=== PATIENT | male | born 1985 | race Caucasian/White ===

== ENCOUNTER 2016-10-16 10:21 | Inpatient (IN) | payer BC, OTHER ==
[~2016-10-16] VITALS: Ht 177.8 cm; Wt 108.9 kg
[2016-10-16 12:30] VITALS: BP 128/51
[2016-10-16] MEDS ORDERED: SULF1TAB48 PO (12:41)
[2016-10-16] MEDS ORDERED: CEPH500C2 PO (12:42)
[2016-10-16] MEDS ORDERED: WARF7.5T23 PO (12:43)
[2016-10-16] MEDS ORDERED: WARF5TAB6 PO (12:44)
[2016-10-16] MEDS ORDERED: BUPRENORPHINE HCL 2 MG TAB.SUBL SL PRN (12:45)
[2016-10-16] MEDS ORDERED: IBUPROFEN 600 MG TABLET PO PRN (12:45)
[2016-10-16] MEDS ORDERED: LORAZEPAM 2 MG/1 ML VIAL IM PRN (12:45)
[2016-10-16] MEDS ORDERED: MAG HYDROX/AL HYDROX/SIMETH 30 ML LIQUID UDC PO PRN (12:45)
[2016-10-16] MEDS ORDERED: LORAZEPAM 1 MG TABLET PO PRN ×2 (12:45)
[2016-10-16] MEDS ORDERED: MIRALAX 17 GM POWD.PACK PO PRN (12:45)
[2016-10-16] MEDS ORDERED: LOPERAMIDE HCL 2 MG CAPSULE PO PRN ×2 (12:45)
[2016-10-16] MEDS ORDERED: ONDANSETRON 4 MG/2 ML VIAL IM PRN (12:45)
[2016-10-16] MEDS ORDERED: diphenhydrAMINE 50 MG CAPSULE PO PRN (12:45)
[2016-10-16] MEDS ORDERED: MAGNESIUM HYDROXIDE 30 ML LIQUID UDC PO PRN (12:45)
[2016-10-16] MEDS ORDERED: ACETAMINOPHEN 325 MG TABLET PO PRN (12:45)
[2016-10-16] MEDS ORDERED: THIAMINE HCL 200 MG/2 ML VIAL IM ONE (12:45)
[2016-10-16] MEDS: BUPRENORPHINE HCL 2 MG TAB.SUBL SL SCH ×3 (13:41→21:37)
[2016-10-16] MEDS: CEPHALEXIN MONOHYDRATE 500 MG CAPSULE PO SCH ×3 (13:41→21:37)
--- NOTE | 2016-10-16 13:55 | NUR ---
ADMISSION NOTE VS: BP: 128/51 HR: 77 O2: 94% RR: 17 TEMP: 98.4 PAIN 010 HEIGHT: 5'10" WEIGHT: 240 LBS ALLERGIES: LITTLE Yu is a 31 y/o male admitted to [facility] on 10/16/16 at 1210. Pt is under the care of Dr. Ramos for heroin and etoh dependence. Pt denies suicidal and homicidal ideations at this time. Pt denies chest pain and SOB at this time. Upon assessment, patient has multiple lesions all over back, bilat arms, and chest. Pt states these lesions are from MRSA as he has been hospitalized recently. MRSA swab of nares was sent to lab. Pt placed on contact precautions. COWS 8 CIWA 6 upon admission. NKA. AOx4 and able to answer questions necessary for admission. Pt is full code. VS WNL. Regular diet. Pt denies seizure hx. Pt denies PCP. Breathing is even and unlabored. O2 is 94% on room air. Pt ambulates with steady gait. Pt states bowel habits are normal and he goes at least once per day normally. Pt reports a hx of 10 sober livings and 4 detoxs in the past. Pt reports he is currently living in hotel rooms because he just lost his job. Hx of anxiety and bipolar disorder. Pt refuses pna vaccine. Pt smokes about 10 cigarettes a day. All needs have been met. Pt has been oriented to room, staff, and the unit. All safety measures are in place per hospital policy. Bed in lowest position, side rails up x2, call light within reach. Will continue to monitor. Substance abuse: Heroin IV 1-2 g daily for 2 weeks, last used 10/15/16 2 grams ETOH PO "5th" daily for 2 weeks, last used 10/16/16 1 pint rum and 6 pack of beer. Addendum: 10/16/16 at 1419 by MALIKA BRAMBILA RN Upon reassessment, pt states he has had seizures in the past. Last seizure was about 1.5 years ago. Side rails padded.
[2016-10-16 14:04] LABS: BASOPHILS % (AUTO) 0.6 % (0.0-2.0); EOSINOPHILS # (AUTO) 0.3 K/uL (0.0-0.7); EOSINOPHILS % (AUTO) 4.2 % (0.0-7.0); HEMOGLOBIN 17.5 g/dL (14.0-18.0); LYMPHOCYTES # (AUTO) 1.5 K/uL (0.8-4.8); LYMPHOCYTES % (AUTO) 23.7 % (20.5-51.5); MEAN CORPUSCULAR HEMOGLOBIN 29.5 uug (27.0-31.0); MEAN CORPUSCULAR HGB CONC 34 g/dL (32.0-37.0); MEAN CORPUSCULAR VOLUME 85.6 fL (82.0-92.0); MONOCYTES # (AUTO) 0.4 K/uL (0.1-1.30); MONOCYTES % (AUTO) 6.2 % (0.0-11.0); NEUTROPHILS # (AUTO) 4.1 K/uL (1.8-8.9); NEUTROPHILS % (AUTO) 65.3 % (38.5-71.5); PLATELET COUNT (AUTO) 254 K/uL (150-450); RED BLOOD CELL COUNT(AUTO) 5.95 MIL/uL (4.70-6.10); RED CELL DISTRIBUTION WIDTH 12.2 % (11.5-14.5); WHITE BLOOD COUNT (AUTO) 6.3 K/uL (4.0-11.2)
[2016-10-16 14:10] LABS: ALBUMIN 3.8 g/dL (3.4-5.0); BILIRUBIN,TOTAL 0.9 mg/dL (0.2-1.0); CALCIUM 8.5 mg/dL (8.5-10.1); CREATININE 1.2 mg/dL (0.6-1.3); MAGNESIUM 2.2 mg/dL (1.8-2.4); POTASSIUM 4.5 mmol/L (3.5-5.1); TOTAL PROTEIN, SERUM 7.9 g/dL (6.4-8.2)
[2016-10-16 14:11] LABS: *AMPHETAMINE, URINE NEGATIVE (NEGATIVE); *BARBITURATE, URINE NEGATIVE (NEGATIVE); *CANNABINOID, URINE NEGATIVE (NEGATIVE); *COCCAINE, URINE NEGATIVE (NEGATIVE); *OPIATE, URINE POSITIVE (NEGATIVE); *PHENCYCLIDINE SCREEN,URINE NEGATIVE (NEGATIVE)
[2016-10-16] MEDS: GABAPENTIN 300 MG CAPSULE PO SCH ×2 (14:18→21:37)
--- NOTE | 2016-10-16 14:19 | NUR ---
Pt refusing side rails to be padded. Educated pt on risks of not padding side rails. Will monitor.
[2016-10-16 14:21] LABS: THYROID STIMULATING HORMONE 0.459 mIU/mL (0.358-3.740)
--- NOTE | 2016-10-16 14:24 | NUR ---
notified Dr. Ramos notified. Pt ETOH level 0.08. No new orders.
[2016-10-16 14:28] LABS: BAND % (MANUAL) 11 % (0-10); EOSINOPHILS % (MANUAL) 4 % (0-8); LYMPHOCYTES % (MANUAL) 27 % (20-40); MONOCYTES % (MANUAL) 4 % (2-10); NEUTROPHILS % (MANUAL) 54 % (42-75)
[2016-10-16 14:29] LABS: PLATELET ESTIMATE ADEQUATE
[2016-10-16 14:33] LABS: HIV-1 p24 ANTIGEN NON REACTIVE (NONREACTIVE); HIV-1/2 ANTIBODY NON REACTIVE (NONREACTIVE)
[2016-10-16 16:00] VITALS: BP 121/70
--- NOTE | 2016-10-16 16:03 | NUR ---
Notified Dr. Ramos regarding elevated PT and INR levels. Ordered to hold 1700 Coumadin. Notified pharmacy. Will non-administer per doctor order.
--- NOTE | 2016-10-16 16:35 | NUR ---
PRN MED PRN Zofran 4 mg ODT given for c/o nausea. Will monitor for effectiveness.
[2016-10-16] MEDS ORDERED: WARFARIN SODIUM 5 MG TABLET PO ONE (17:00)
--- NOTE | 2016-10-16 17:22 | NUR ---
PRN EFFECTIVENESS Patient states Zofran was helpful and he is no longer nauseated.
--- NOTE | 2016-10-16 18:47 | NUR ---
END OF SHIFT: Admitted patient this shift. Pt admitted for IV heroin and ETOH dependence. Pt reports using 1-2 grams of heroin and about a 5th of ETOH everyday for about 2 weeks. Pt has a history of protein S deficiency and Hepatitis C. Pt on contact precautions for MRSA outbreak. Nares swabbed for MRSA and sent to lab. Pt has lesions on back, bilat arms, and chest from MRSA per patient. Patient is also on fall and seizure precautions although pt refused to have his side rails padded. Patient is to start a 5 day Ativan taper on 10/17/16 at 0900. Last COWS 6 CIWA 4. PRN Zofran given this shift with effectiveness. VS stable. Bed locked and in lowest position with call gupta in reach. Will pass report to oncoming nurse
[2016-10-16 20:00] VITALS: BP 136/80
--- NOTE | 2016-10-16 20:00 | NUR ---
2000 Patient received resting comfortably with eyes closed and respirations unlabored at 18. Patient easily aroused for nurse assess and vital signs. Patient responds to nurse's greeting and introduction with delayed, " Hi" and shoulder shrugs. Eye contact transient. Patient is oriented to person, place, day and his personal situation. Reoriented to date and time. Patient's color is pink and his skin is warm, very slightly moist and intact. Patient is on Contact precautions for body, skin MRSA, noted on his back, arms and chest. Patient states that he was recently hospitalized at [facility] his current MRSA diagnosis. Patient's lung sounds are clear bilaterally and active bowel sounds are noted X 4 abdominal Quads, per auscultation. Vital signs are: 98.6-90-18 136/80, O2 Sat 98%, COWS 5, CIWA 4. Fall/Seizure precautions continue. Patient states that he ate a little food from his regular dinner tray and he is taking fluids ad malathi with no gastric issues at this time. Patient offers no requests or c/o anything at this time, and he denies any specific discomfort. [facility]. Patient was admitted today, 10/16/16 for: heroin and alcohol withdrawal and he will start on a 5-Day Ativan medication taper tomorrow, 10/17/16. Bed is locked and in lowest position, bed rails are up X 2 and call light within patient's easy reach.
[2016-10-16] MEDS: SULFAMETH/TRIMETH 800/160 MG TABLET PO SCH (21:37)
[2016-10-16] MEDS: CLONIDINE HCL 0.1 MG TABLET PO PRN (23:42)
[2016-10-16] MEDS: ONDANSETRON ODT 4 MG TAB.RAPDIS SL PRN (23:42)
--- NOTE | 2016-10-16 23:42 | NUR ---
PRN MEDICATIONS: Prn Zofran 4 mg Odt SL given per patient's c/o nausea and Prn Catapres 0.1 mg given per patient's c/o 'withdrawal symptoms'; anxiety, restless leg, agitation, skin temp flashes.
[2016-10-17] VITALS: BP 129/76
--- NOTE | 2016-10-17 00:42 | NUR ---
REASSESSMENT PRN MEDICATIONS: Patient is resting quietly with eyes closed and respirations even, unlabored at 16.
[2016-10-17 04:00] VITALS: BP 128/83
--- NOTE | 2016-10-17 06:30 | NUR ---
0630 Patient slept a total of 5 hours and he had a total of 2,370 ml p.o. intake. He had 4 voids and 4 stools at bathroom. Prn medications given noted separately per floor protocol. V/SS afebrile, CIWA 4, COWS 5. Patient is presently resting comfortably in stable condition with eyes closed and respirations quiet, unlabored at 14.
--- NOTE | 2016-10-17 07:29 | NUR ---
START OF SHIFT Received pt this am aox4. Patient in his room and states he is feeling w/d s/s of anxiousness, agitated, sweats, shakes, and disoriented. Pt states he had restless sleep last night and kept waking up. He slept 5 hours per night nurse. PRN Catapres and Zofran given during shift nurse manager and it was effective per night nurse. Last COWS 5 CIWA 4. Pt remains on isolation precautions for MRSA outbreak. Pt is aware of limitations regarding his isolation precautions. TB test is to be complete today. 5 day Ativan taper is to start at 0900 today. Will encourage increase in fluids to facilitate his detox. Call gupta in reach. Will continue to monitor pt and provide safe and supportive environment.
[2016-10-17 08:00] VITALS: BP 103/70
[2016-10-17] MEDS ORDERED: TUBERCULIN,PURIF.PROT.DERIV. 5 TU/0.1 ML TEST ID ONE (09:00)
[2016-10-17] MEDS ORDERED: 5 DAY TAPER OF LORAZEPAM -SERENITY PROTOCOL PO PRN (09:00)
[2016-10-17 09:07] LABS: HCV AB >11.0 s/co ratio (0.0-0.9); HEPATITIS B CORE AB, IgM Negative (Negative); HEPATITIS B SURFACE AG Negative (Negative)
[2016-10-17] MEDS: BUPRENORPHINE HCL 2 MG TAB.SUBL SL SCH ×3 (09:11→20:57)
[2016-10-17] MEDS: THIAMINE HCL 100 MG TABLET PO SCH (09:12)
[2016-10-17] MEDS: SULFAMETH/TRIMETH 800/160 MG TABLET PO SCH (09:12)
[2016-10-17] MEDS: FOLIC ACID 1 MG TABLET PO SCH (09:12)
[2016-10-17] MEDS: MULTIVITAMINS,THERAPEUTIC TABLET PO SCH (09:12)
[2016-10-17] MEDS: DOCUSATE SODIUM 250 MG CAPSULE PO SCH (09:12)
[2016-10-17] MEDS: CEPHALEXIN MONOHYDRATE 500 MG CAPSULE PO SCH ×4 (09:12→20:58)
[2016-10-17] MEDS: LORAZEPAM 1 MG TABLET PO SCH ×4 (09:12→20:58)
[2016-10-17] MEDS: GABAPENTIN 300 MG CAPSULE PO SCH ×3 (09:12→20:58)
--- NOTE | 2016-10-17 11:55 | NUR ---
Notified Dr. Ramos of PT and INR values. Ordered to resume Coumadin 5 mg.
[2016-10-17 12:00] VITALS: BP 149/62
[2016-10-17] MEDS: ONDANSETRON ODT 4 MG TAB.RAPDIS SL PRN (12:57)
--- NOTE | 2016-10-17 12:57 | NUR ---
PRN MED PRN Zofran ODT given for c/o nausea. Pt states he couldn't eat his lunch he felt so nauseated. Will reassess.
[2016-10-17] MEDS ORDERED: LORAZEPAM 1 MG TABLET PO SCH (13:00)
--- NOTE | 2016-10-17 13:50 | NUR ---
MED REASSESSMENT Pt is in bed resting. Reports nausea has gotten better. Bed locked and in lowest position. Call gupta in reach. Will continue to monitor
[2016-10-17] MEDS ORDERED: TEST200V4 IM (15:27)
[2016-10-17 16:00] VITALS: BP 129/65
--- NOTE | 2016-10-17 16:17 | NUR ---
MRSA negative. Dr. Ramos notified. DC contact precautions per Dr. Ramos.
[2016-10-17] MEDS: COUMADIN VARIABLE DOSE REMINDE XX SCH (16:49)
[2016-10-17] MEDS ORDERED: WARFARIN SODIUM 5 MG TABLET PO ONE (17:00)
--- NOTE | 2016-10-17 18:49 | NUR ---
START OF SHIFT NOTE Patient endorsed by outgoing day shift nurse. SBAR report received. Patient is a32 years old male admitted to [facility] for ETOH and Opioid Dependence, placed on 5 day Ativan taper started 10/17/2016 at 09:00. NKA, Regular Diet, Full Code, Fall and Seizures Precautions. Patient denied History of Seizures. Patient denied SI/HI.Past Medical History: Protein S def.; Hepatitis C; Substance Use. Substance Use History: Heroin via IV: 1-2 grams during 2 weeks. Last amount 2 grams on 10/15/16. ETOH (Rum, Beer): 5 th during 2 weeks. Last dose of 1 pint Rum and 6 packs beer on 10/16/16. Recent Hospitalizations/Treatment: 10 Sober Livings; 4 Detox; Hospitalized at [facility] for MRSA less than 30 days. Patient cant reminder dates of Treatments. MRSA tests negative. Upon assessment patient is alert and oriented x4; speech is soft. COWS 6; CIWA 3. HR:85; patient reports increase anxiety; c/o chills/flushing; sweating, c/o mild diffuse discomfort; c/o stomach cramps. VS: T:98.1; HR: 85; BP: 121/60; RA O2SAT: 95%; RR: 19. Breathing is unlabored and even. Lungs Sounds are clear. BS is active in all x 4 quadrants. Last BMs today in the morning. Skin is intact, warm and moist by touch. Patient was educated for safety issues: keep bed in lowest position and locked, rails up x2. Patient returned his Knowledge back by verbalized understanding. All Safety met by hospital policy: Call Light within reach; Bed in lowest position and locked, rails up x2. Will continue to monitor.
--- NOTE | 2016-10-17 18:49 | NUR ---
END OF SHIFT NOTE Pt started Ativan taper this am. Pt tolerating medication well and pt reports it is helping to manage s/s of w/d. Last COWS 3 CIWA 2. Pt reports loose stools and intermittent sweats. His anxiety has significantly decreased throughout shift. Pt given PRN Zofran ODT during shift with effectiveness per pt. MRSA results were negative and contact precautions were discontinued per Dr. Ramos order. Pt given [address] Ramos order for INR 2.24 and PT 23.1.Pt attended group today and socialized with peers. TB test was administered today and is to be ready 10/19. No signs of redness noted. Pt continues on fall and seizure precautions. Pt currently resting in room with bed locked and in lowest position and call gupta within reach. RR even and unlabored. All needs attended to promptly. All safety measures in place. Will pass report to oncoming nurse
[2016-10-17 20:00] VITALS: BP 121/60
[2016-10-17] MEDS: LACTOBACILLUS RHAMNOSUS GG 1 EACH CAPSULE PO SCH (20:58)
[2016-10-18] VITALS: BP 114/57
--- NOTE | 2016-10-18 00:50 | NUR ---
PRN BENADRYL/ROBAXIN ADMINISTRATION PATIENT UNABLE TO SLEEP, NOTED RESTLESS, UNABLE TO SIT STILL AND C/O RESTLESS LEGS. PRN BENADRYL AND ROBAXIN GIVEN. WILL MONITOR FOR EFFECTIVENESS
[2016-10-18 04:00] VITALS: BP 102/54
--- NOTE | 2016-10-18 07:02 | NUR ---
END OF SHIFT NOTE Patient is a32 years old male admitted to [facility] for ETOH and Opioid Dependence, placed on 5 day Ativan taper started 10/17/2016 at 09:00. NKA, Regular Diet, Full Code, Fall and Seizures Precautions. Patient denied History of Seizures. Patient denied SI/HI. Upon assessment at 04:00: COWS 4; CIWA 2. patient presented with anxiety ; restlessness, sweating, bone and Joint aches, stomach cramps. VS at 04:00: T:98.2; HR: 84; BP: 102/54; RA O2SAT: 95%; RR: 17. Breathing is unlabored and even. Lungs Sounds are clear. BS is active in all x 4 quadrants. Last BMs today in the morning. Skin is intact, warm and moist by touch. Patient participated in activities groups. Patient remains compliant with treatment plan, medications and diet regime. No PRN Medications was administrated during my shift. Patient slept 9 hours; Intake: 651ml; Voided x1. All Safety met by hospital policy: Call Light within reach; Bed in lowest position and locked, rails up x2. Patient endorsed to day shift nurse in stable condition.. SBAR report given.
--- NOTE | 2016-10-18 07:55 | NUR ---
START OF SHIFT Received pt this am aox4. Patient in his room and states he is feeling restless, intermittent cold sweats, stuffy nose, and light headed.. Pt states he had restless sleep again last night and kept waking up. He slept 9 hours per night nurse. No PRNs needed last shift per night nurse.. Last COWS 4 CIWA 2 per night nurse. Pt continues on 5 day Ativan taper.. Will encourage increase in fluids to facilitate his detox. Will encourage group attendance again today. Call gupta in reach. Will continue to monitor pt and provide safe and supportive environment.
[2016-10-18 08:00] VITALS: BP 135/62
[2016-10-18] MEDS: FOLIC ACID 1 MG TABLET PO SCH (08:42)
[2016-10-18] MEDS: THIAMINE HCL 100 MG TABLET PO SCH (08:42)
[2016-10-18] MEDS: CEPHALEXIN MONOHYDRATE 500 MG CAPSULE PO SCH ×4 (08:42→21:04)
[2016-10-18] MEDS: MULTIVITAMINS,THERAPEUTIC TABLET PO SCH (08:42)
[2016-10-18] MEDS: LORAZEPAM 1 MG TABLET PO SCH ×3 (08:42→21:04)
[2016-10-18] MEDS: LACTOBACILLUS RHAMNOSUS GG 1 EACH CAPSULE PO SCH ×2 (08:42→21:04)
[2016-10-18] MEDS: GABAPENTIN 300 MG CAPSULE PO SCH ×3 (08:42→21:04)
[2016-10-18] MEDS: DOCUSATE SODIUM 250 MG CAPSULE PO SCH (08:42)
[2016-10-18] MEDS ORDERED: BUPRENORPHINE HCL 2 MG TAB.SUBL SL SCH (09:00)
[2016-10-18] MEDS ORDERED: LORAZEPAM 1 MG TABLET PO SCH (09:00)
[2016-10-18 12:00] VITALS: BP 101/71
--- NOTE | 2016-10-18 12:44 | NUR ---
Wounds reassessed, pictures taken and placed in pt chart.
--- NOTE | 2016-10-18 13:03 | NUR ---
Notified Dr. Ramos of PT 20.8 and INR 2.02 and ordered to give 5 mg Coumadin. Addendum: 10/18/16 at 1458 by MALIKA BRAMBILA RN at 1700
[2016-10-18] MEDS: BUPRENORPHINE HCL 2 MG TAB.SUBL SL SCH ×2 (14:30→21:06)
[2016-10-18 16:00] VITALS: BP 128/52
[2016-10-18] MEDS: COUMADIN VARIABLE DOSE REMINDE XX SCH (16:44)
[2016-10-18] MEDS: DICYCLOMINE HCL 20 MG TABLET PO PRN ×2 (16:48→23:10)
[2016-10-18] MEDS: METHOCARBAMOL 750 MG TABLET PO PRN (16:48)
--- NOTE | 2016-10-18 16:51 | NUR ---
PRN MEDICATION PRN Bentyl and Robaxin given for c/o body aches and stomach cramps. Pt presents agitated and restless r/t aching. Will reassess
[2016-10-18] MEDS ORDERED: WARFARIN SODIUM 5 MG TABLET PO ONE (17:00)
--- NOTE | 2016-10-18 17:30 | NUR ---
PRN REASSESSMENT Patient laying in bed sleeping rr even and unlabored. RR 16. Bed locked and in lowest position. Call gupta within reach. Will continue to monitor.
--- NOTE | 2016-10-18 18:58 | NUR ---
END OF SHIFT NOTE Pt continues on Subutex taper. Pt tolerating medication well and pt reports it is helping to manage s/s of w/d. Last COWS 3 CIWA 2. Pt reports restlessness, anxiety, body aches and stomach cramps. Pt given PRN Bentyl and Robaxin with effectiveness. Pt given [address] Ramos order for INR 2.02 and PT 20.8 .Pt attended group today and socialized with peers. Pt continues on fall and seizure precautions. Pt currently resting in room with bed locked and in lowest position and call gupta within reach. RR even and unlabored. All needs attended to promptly. All safety measures in place. Will pass report to oncoming nurse
[2016-10-18 20:00] VITALS: BP 129/65
--- NOTE | 2016-10-18 20:00 | NUR ---
START OF SHIFT NOTE PATIENT IN ROOM, RESTING , ALERT AND ORIENTED X 4. PATIENT REPORTS ANXIETY, STUFFY NOSE, HOT AND COLD SWEATS. NAUSEA NO EMESIS, IRRITABLE AND MILDLY AGITATED. RELAXATION TECHNIQUE PROVIDED. PATIENT STATES HE ATTENDED GROUPS . HAD BM TODAY, WITH GOOD APPETITE AND DRINKING WELL. RECEIVED REPORT FROM DAY SHIFT NURSE. PATIENT IS A 31 YEAR OLD MALE, ADMITTED FOR SUBSTANCE DEPENDENCE. PATIENT IS ON 2ND DAY OF HIS 5 DAY ATIVAN TAPER AND 4 DAY SUBUTEX TAPER. PATIENT IS FULL CODE, REGULAR DIET AND NO KNOWN ALLERGY. PATIENT WITH MULTIPLE LESION ON BACK, BILATERAL ARMS AND CHEST. ON ANTIBIOTIC WITH NO ADVERSE EFFECT . PATIENT REPORTS PMH OF PROTEIN S DEF AND HEPATITIS C. ON FALL/SEIZURE PRECAUTION. PATIENT WAS GIVEN BENTYL AND ROBAXIN. LAST COWS 6 AND CIWA 4. SAFETY MEASURES IN PLACE. CALL LIGHT IN REACH. WILL CONTINUE TO MONITOR.
[2016-10-18] MEDS: ONDANSETRON ODT 4 MG TAB.RAPDIS SL PRN (21:06)
--- NOTE | 2016-10-18 21:06 | NUR ---
PRN ZOFRAN SL ADMINISTRATION PATIENT C/O NAUSEA NO EMESIS. PRN ZOFRAN GIVEN. WILL MONITOR FOR EFFECTIVENESS
--- NOTE | 2016-10-18 21:36 | NUR ---
PRN ZOFRAN SL RE-ASSESSMENT PATIENT STATES NAUSEA CEASED. ZOFRAN EFFECTIVE. WILL CONTINUE TO MONITOR
[2016-10-18] MEDS: CLONIDINE HCL 0.1 MG TABLET PO PRN (23:10)
--- NOTE | 2016-10-18 23:10 | NUR ---
PRN BENADRYL, CATAPRES , ZOFRAN IM ADMINISTRATION PATIENT C/O ANXIETY, SWEATING, NAUSEATED WITH EMESIS . PRN CATAPRES , BENADRYL AND ZOFRAN IM GIVEN PER DR. CHAN. WILL CONTINUE TO MONITOR EFFECTIVENESS Addendum: 10/19/16 at 0433 by WESLEY LEMONS LVN CLARIFICATION: BENTYL GIVEN. PATIENT C/O ABDOMINAL CRAMPING.
[2016-10-19] VITALS: BP 113/59
--- NOTE | 2016-10-19 00:10 | NUR ---
FIORELLA MATTHEW RE-ASSESSMENT PATIENT STATES STILL UNABLE TO SLEEP, STILL ANXIOUS. PATIENT STATES HE WILL GO SMOKE AND WILL TRY TO SLEEP. WILL CONTINUE TO MONITOR . MOISE AND CATAPRES INEFFECTIVE. Addendum: 10/19/16 at 0602 by WESLEY LEMONS LVN CLARIFICATION: ANTOINE RE-ASSESSMENT PATIENT STATES ABDOMINAL CRAMPING IS STILL PRESENT . ANTOINE HELPFUL HE FEELS MUCH BETTER
[2016-10-19] MEDS: METHOCARBAMOL 750 MG TABLET PO PRN (00:50)
--- NOTE | 2016-10-19 00:50 | NUR ---
PRN BENADRYL/ROBAXIN ADMINISTRATION PATIENT NOTED UNABLE TO SLEEP AND C/O RESTLESS LEGS. PRN BENADRYL AND ROBAXIN GIVEN. WILL MONITOR FOR EFFECTIVENESS.
--- NOTE | 2016-10-19 01:50 | NUR ---
TIFFANIEN MOISE /ROBAXIN RE-ASSESSMENT PATIENT IN BED WITH EYES CLOSED. NO S/S OF DISTRESS. RESPIRATION EVEN AND UNLABORED. SAFETY MEASURES IN PLACE. CALL LIGHT IN REACH. WILL CONTINUE TO MONITOR.
[2016-10-19] MEDS ORDERED: BUPRENORPHINE HCL 2 MG TAB.SUBL SL ONE (02:30)
[2016-10-19] MEDS ORDERED: LORAZEPAM 1 MG TABLET PO ONE (02:30)
--- NOTE | 2016-10-19 02:30 | NUR ---
ONE TIME ATIVAN AND SUBUTEX ADMINISTRATION PATIENT NOTED ANXIOUS, IRRITATED, AGITATED, UNABLE TO SIT STILL, C/O SWEATING, HOT AND COLD CHILLS . NON PHARMACOLOGICAL INTERVENTIONS INEFFECTIVE. CIWA 8 AND COWS 8. PRN ATIVAN AND SUBUTEX GIVEN PER DR. CHAN ORDER. WILL CONTINUE TO MONITOR FOR EFFECTIVENESS
--- NOTE | 2016-10-19 03:00 | NUR ---
PRN SUBUTEX RE-ASSESSMENT PATIENT IN BED, WITH HIS EYES CLOSED. COWS 2 AT THIS TIME. PATIENT JUST NOD WHEN ASKED HOW HE IS. WILL CONTINUE TO MONITOR.
--- NOTE | 2016-10-19 03:30 | NUR ---
PRN ATIVAN RE-ASSESSMENT PATIENT IN BED WITH EYES CLOSED . NO S/S OF DISTRESS. PATIENT JUST NOD WHEN ASKED HOW HE IS THEN GOES BACK TO SLEEP. WILL CONTINUE TO MONITOR. . CIWA 1.
[2016-10-19 04:00] VITALS: BP 122/71
--- NOTE | 2016-10-19 07:05 | NUR ---
Start of Shift Endorsement received from nightshift nurse. Pt is a 31 y/o male admitted to [facility] for heroin and alcohol dependence. Pt has been placed on a 5 day Ativan and 4 day Subutex taper. Pt is tolerating the taper, pt is mildly withdrawing at this time AEB COWS 1, CIWA 1 at 0400. Pt received prn Zofran x2, Bentyl, Clonidine, Robaxin and Benadryl during nightshift. PT slept 5 hours. Pt also received One time dose of Subutex and Ativan per Dr. Falcon. VS WNL, Full Code. PT is alert and oriented x4. Pt is in STABLE condition at this time. Remains compliant with medication and diet regimen. All needs have been met, All safety measures in place per hospital policy. Bed in lowest position, side rails up x2, call-light within reach. Will continue to monitor
--- NOTE | 2016-10-19 07:32 | NUR ---
END OF SHIFT NOTE PATIENT C/O MEDICATION AND TREATMENT PLAN. PATIENT WAS NAUSEATED THE BEGINNING OF SHIFT, C/O SWEATING, STUFFY NOSE, HOT AND COL SWEATS , IRRITABLE AND MILDLY AGITATED. PRN ZOFRAN SL GIVEN AT 2106. THEN AT 2310 PATIENT WAS GIVEN BENTYL , CATAPRES AND ZOFRAN IM. PATIENT NAUSEATED WITH EMESIS. AT 0050, PATIENT UNABLE TO SLEEP, ANXIOUS, EFFECTIVE. PATIENT WAS AGITATED , IRRITABLE , PATIENT REPORTS NOT FEELING WELL, REPORTS SWEATING, ANXIOUS, AGITATED, COWS [address] CHAN NOTIFIED AND MADE AND ORDER TO GIVEN ONE TIME SUBUTEX AND ATIVAN . EFFECTIVE. CONTINUE ON ANTIBIOTIC WITH NO ADVERSE EFFECT NOTED. FLUIDS ENCOURAGED. PATIENT SLEPT 5 HOURS DURING SHIFT,FLUID INTAKE OF 596 ML. VOIDED X 1 . NO BM. ON FALL PRECAUTION. WILL CONTINUE TO MONITOR. LAST COWS 1 AND CIWA 1.
[2016-10-19 08:00] VITALS: BP 138/75
[2016-10-19] MEDS: BUPRENORPHINE HCL 2 MG TAB.SUBL SL SCH ×3 (08:44→20:57)
[2016-10-19] MEDS: CEPHALEXIN MONOHYDRATE 500 MG CAPSULE PO SCH ×3 (08:44→16:02)
[2016-10-19] MEDS: FOLIC ACID 1 MG TABLET PO SCH (08:45)
[2016-10-19] MEDS: LORAZEPAM 1 MG TABLET PO SCH ×4 (08:45→20:57)
[2016-10-19] MEDS: LACTOBACILLUS RHAMNOSUS GG 1 EACH CAPSULE PO SCH ×2 (08:45→20:56)
[2016-10-19] MEDS: GABAPENTIN 300 MG CAPSULE PO SCH ×3 (08:45→20:56)
[2016-10-19] MEDS: MULTIVITAMINS,THERAPEUTIC TABLET PO SCH (08:45)
[2016-10-19] MEDS: DOCUSATE SODIUM 250 MG CAPSULE PO SCH (08:45)
[2016-10-19] MEDS: THIAMINE HCL 100 MG TABLET PO SCH (08:45)
[2016-10-19] MEDS ORDERED: LORAZEPAM 1 MG TABLET PO SCH (09:00)
[2016-10-19 12:00] VITALS: BP 130/60
[2016-10-19] MEDS: CLONIDINE HCL 0.1 MG TABLET PO SCH ×2 (15:58→20:57)
[2016-10-19 16:00] VITALS: BP 110/62
[2016-10-19] MEDS ORDERED: WARFARIN SODIUM 5 MG TABLET PO SCH (17:00)
--- NOTE | 2016-10-19 18:51 | NUR ---
End of Shift Endorsement given to nightshift nurse. Pt is a 31 y/o male admitted to [facility] for heroin and alcohol dependence. Pt has been placed on a 5 day Ativan and 4 day Subutex taper. Pt is tolerating the taper, pt is mildly withdrawing at this time AEB COWS 5, CIWA 4 at 0400. Pt received did not receive any PRN medications. Educated pt on deep breathing techniques, pt demonstrated the exercise successfully. Pt participated in groups and activities. Pt reports readiness for sobriety. Intake: 1290ml, Void x3, BM x0. VS WNL, Full Code. PT is alert and oriented x4. Pt is in STABLE condition at this time. Remains compliant with medication and diet regimen. All needs have been met, All safety measures in place per hospital policy. Bed in lowest position, side rails up x2, call-light within reach. Will continue to monitor
[2016-10-19 20:00] VITALS: BP 128/71
--- NOTE | 2016-10-19 20:00 | NUR ---
START OF SHIFT NOTE PATIENT ALERT AND ORIENTED X 4. RESPIRATION EVEN AND UNLABORED. PATIENT REPORTS ANXIETY, SWEATING AND ABDOMINAL CRAMPING. PATIENT STATES HE FEELS MUCH BUT BETTER THAN YESTERDAY. PATIENT ATTENDED GROUPS BUT NOT THE AA. PATIENT WITH GOOD APPETITE AND DRINKING FLUIDS WELL. PATIENT IS A 31 YEAR OLD MALE, ADMITTED FOR SUBSTANCE DEPENDENCE. PATIENT IS ON 3RD DAY OF HIS 5 DAY ATIVAN AND 4 DAY SUBUTEX TAPER. PATIENT IS FULL CODE, REGULAR DIET AND NO KNOWN ALLERGY. PATIENT REPORTS PMH OF PROTEIN S DIF WHICH HE IS TAKING COUMADIN AND HEPATITIS C. RECEIVED REPORT FROM DAY SHIFT NURSE, PATIENT DID NOT REQUIRE ANY PRN MEDICATION. LAST COWS [address] SINGLETON HAS AN ORDER FOR TESTOSTERONE LEVEL FOR TOMORROW. ON FALL PRECAUTION. SAFETY MEASURES IN PLACE. CALL LIGHT IN REACH. WILL CONTINUE TO MONITOR
[2016-10-19] MEDS: ONDANSETRON ODT 4 MG TAB.RAPDIS SL PRN (21:01)
--- NOTE | 2016-10-19 21:01 | NUR ---
PRN ZOFRAN SL ADMINISTRATION PATIENT C/O NAUSEA, NO EMESIS. PRN ZOFRANL WILL MONITOR FOR EFFECTIVENESS
--- NOTE | 2016-10-19 22:01 | NUR ---
PRN ZOFRAN RE-ASSESSMENT PATIENT STATES NAUSEA CEASED. WILL CONTINUE TO MONITOR
[2016-10-20] VITALS: BP 125/69
[2016-10-20 04:00] VITALS: BP 113/59
--- NOTE | 2016-10-20 07:00 | NUR ---
Start of Shift Endorsement received from nightshift nurse. Pt is a 31 y/o male admitted to [facility] for heroin and alcohol dependence. Pt has been placed on a 5 day Ativan and 4 day Subutex taper. Pt is tolerating the taper, pt is mildly withdrawing at this time AEB COWS 1, CIWA 1 at 0400. Pt received prn Zofran for nausea. PT slept 6 hours. VS WNL, Full Code. PT is alert and oriented x4. Pt is in STABLE condition at this time. Remains compliant with medication and diet regimen. All needs have been met, All safety measures in place per hospital policy. Bed in lowest position, side rails up x2, call-light within reach. Will continue to monitor
--- NOTE | 2016-10-20 07:14 | NUR ---
END OF SHIFT NOTE PATIENT ALERT AND ORIENTED X 4. RESPIRATION EVEN AND UNLABORED. PATIENT REPORTS ANXIETY, SWEATING, ABDOMINAL CRAMPING AND NAUSEA. PATIENT WAS GIVEN ZOFRAN AT 2101 . PATIENT STATES HE FEELS MUCH BUT BETTER THAN PREVIOUS DAY. PATIENT ATTENDED GROUPS BUT NOT THE AA. PATIENT WITH GOOD APPETITE AND DRINKING FLUIDS WELL. DR. SINGLETON HAS AN ORDER FOR TESTOSTERONE LEVEL FOR TODAY. PATIENT COMPLIANT WITH MEDICATIONS AND TREATMENT PLAN. ON FALL PRECAUTION. SAFETY MEASURES IN PLACE. CALL LIGHT IN REACH. WILL CONTINUE TO MONITOR SLEPT 5 HOURS. FLUID INTAKE 1,047 ML. VOIDED X 2. NO BM. LAST COWS 1 AND CIWA 0.
[2016-10-20 08:00] VITALS: BP 108/65
[2016-10-20] MEDS: GABAPENTIN 300 MG CAPSULE PO SCH ×3 (08:30→20:58)
[2016-10-20] MEDS: LORAZEPAM 1 MG TABLET PO SCH ×3 (08:30→20:57)
[2016-10-20] MEDS: DOCUSATE SODIUM 250 MG CAPSULE PO SCH (08:31)
[2016-10-20] MEDS: LACTOBACILLUS RHAMNOSUS GG 1 EACH CAPSULE PO SCH ×2 (08:31→20:57)
[2016-10-20] MEDS: THIAMINE HCL 100 MG TABLET PO SCH (08:31)
[2016-10-20] MEDS: CLONIDINE HCL 0.1 MG TABLET PO SCH ×3 (08:31→20:57)
[2016-10-20] MEDS: MULTIVITAMINS,THERAPEUTIC TABLET PO SCH (08:31)
[2016-10-20] MEDS: FOLIC ACID 1 MG TABLET PO SCH (08:31)
[2016-10-20 08:44] LABS: BASOPHILS % (AUTO) 0.9 % (0.0-2.0); EOSINOPHILS # (AUTO) 0.3 K/uL (0.0-0.7); EOSINOPHILS % (AUTO) 6.8 % (0.0-7.0); HEMATOCRIT 49.9 % (40.0-50.0); HEMOGLOBIN 17.1 g/dL (14.0-18.0); LYMPHOCYTES # (AUTO) 2.1 K/uL (0.8-4.8); LYMPHOCYTES % (AUTO) 42.2 % (20.5-51.5); MEAN CORPUSCULAR HEMOGLOBIN 29.9 uug (27.0-31.0); MEAN CORPUSCULAR HGB CONC 34 g/dL (32.0-37.0); MEAN CORPUSCULAR VOLUME 87.4 fL (82.0-92.0); MONOCYTES # (AUTO) 0.4 K/uL (0.1-1.30); MONOCYTES % (AUTO) 7.5 % (0.0-11.0); NEUTROPHILS # (AUTO) 2.1 K/uL (1.8-8.9); NEUTROPHILS % (AUTO) 42.6 % (38.5-71.5); PLATELET COUNT (AUTO) 195 K/uL (150-450); RED BLOOD CELL COUNT(AUTO) 5.71 MIL/uL (4.70-6.10); RED CELL DISTRIBUTION WIDTH 12.2 % (11.5-14.5); WHITE BLOOD COUNT (AUTO) 4.9 K/uL (4.0-11.2)
[2016-10-20] MEDS ORDERED: BUPRENORPHINE HCL 2 MG TAB.SUBL SL SCH (09:00)
[2016-10-20] MEDS ORDERED: LORAZEPAM 1 MG TABLET PO SCH (09:00)
[2016-10-20 09:04] LABS: CALCIUM 8.9 mg/dL (8.5-10.1); CREATININE 1.2 mg/dL (0.6-1.3); POTASSIUM 4.5 mmol/L (3.5-5.1)
[2016-10-20 12:00] VITALS: BP 119/61
[2016-10-20 16:00] VITALS: BP 98/55
[2016-10-20] MEDS ORDERED: WARFARIN SODIUM 5 MG TABLET PO SCH (17:00)
[2016-10-20] MEDS: WARFARIN SODIUM 3 MG TABLET PO SCH (17:21)
[2016-10-20] MEDS: NICOTINE POLACRILEX 4 MG GUM-PK OF TEN BC PRN ×2 (17:22→19:44)
--- NOTE | 2016-10-20 19:05 | NUR ---
Start of Shift Patient Received. Patient is in his room awake, alert and verbally responsive. Breathing even and non labored. No signs of pain or discomfort noted. Patient is a 31 year old male, admitted on 10/16/16 for Opiate and ETOH Dependence. Patient is currently receiving a 4 day Subutex taper and 5 day Ativan taper. Patient verbalizes no known allergies, wishes to be full code, following a regular diet, placed on fall and seizure precautions, skin noted intact. Patients past medical history verbalized as Protein S deficient and Hep C+. Per endorsement, patient started on Nicotine Gum and last given 1722. No other PRN medications administered. All needs attended to promptly. Will continue plan of care as ordered.
--- NOTE | 2016-10-20 19:14 | NUR ---
End of Shift Endorsement given to nightshift nurse. Pt is a 31 y/o male admitted to [facility] for heroin and alcohol dependence. Pt has been placed on a 5 day Ativan and 4 day Subutex taper. Pt is tolerating the taper, pt is mildly withdrawing at this time AEB COWS 1, CIWA 1 at 1600. Pt received did not receive any PRN medications. Educated pt on deep breathing techniques, pt demonstrated the exercise successfully. Pt participated in groups and activities. Pt reports readiness for sobriety. Intake: 2500ml, Void x4, BM x2. VS WNL, Full Code. PT is alert and oriented x4. Pt is in STABLE condition at this time. Remains compliant with medication and diet regimen. All needs have been met, All safety measures in place per hospital policy. Bed in lowest position, side rails up x2, call-light within reach. Will continue to monitor
[2016-10-20 20:55] VITALS: BP 148/65
[2016-10-21 00:15] VITALS: BP 113/59
[2016-10-21 05:02] VITALS: BP 116/68
[2016-10-21 05:07] LABS: *TESTOSTERONE, SERUM 459 ng/dL (348-1197)
--- NOTE | 2016-10-21 07:02 | NUR ---
End of Shift Patient is in his room sleeping. Breathing even and non labored. No signs of pain or discomfort noted. Patient is a 31 year old male, admitted on 10/16/16 for Opiate and ETOH Dependence. Patient is currently receiving a 4 day Subutex taper and 5 day Ativan taper. Patient verbalizes no known allergies, wishes to be full code, following a regular diet, placed on fall and seizure precautions, skin noted intact. Patients past medical history verbalized as Protein S deficient and Hep C+. Patient was given 1 Nicotine gum which patient was able to verbalize was not effective. No other PRN medications administered. All needs attended to promptly. Will continue plan of care as ordered.
--- NOTE | 2016-10-21 07:39 | NUR ---
START OF SHIFT Endorsement received from scale adjuster nurse. Client is a 31 year old male admitted to [facility] for opioids and alcohol withdrawal. He has been placed on a 5 day Ativan and 4 day Subutex taper. He is tolerating the taper. Past medical history Protein s deficiency on AC, Hepatitis C virus infection, Alcohol Use Disorder, Chronic Tobacco Use, Opioid Use Disorder, hx of withdrawal-induced seizure (last one 1.5 yrs ago w/etoh withdrawal). Client is alert and oriented x4, He presents with anxiety, chills, fatigue, leg restlessness. Encouraged to increase fluid intake and activity as tolerated. Encourage to participate in group therapy. He had an uneventful night, he slept 6 hrs. Last COWS 4/ CIWA 4 at 0400. Last PT 30.8, INR 2.99 trending slightly higher from the past two days. he is on anticoagulant therapy Coumadin 4.5mg daily, client reports no bruises or bleeding. Client is Full Code, regular diet, NKA. Client is on seizure precautions. Side rails up/padded x 2, call light within reach, bed locked in lowest positions. Will continue with plan of care
[2016-10-21 08:00] VITALS: BP 111/61
[2016-10-21] MEDS: MULTIVITAMINS,THERAPEUTIC TABLET PO SCH (08:59)
[2016-10-21] MEDS: THIAMINE HCL 100 MG TABLET PO SCH (08:59)
[2016-10-21] MEDS: GABAPENTIN 300 MG CAPSULE PO SCH ×3 (08:59→21:35)
[2016-10-21] MEDS: CLONIDINE HCL 0.1 MG TABLET PO SCH ×3 (08:59→21:35)
[2016-10-21] MEDS: LORAZEPAM 1 MG TABLET PO SCH ×2 (08:59→21:33)
[2016-10-21] MEDS: LACTOBACILLUS RHAMNOSUS GG 1 EACH CAPSULE PO SCH ×2 (08:59→21:35)
[2016-10-21] MEDS: DOCUSATE SODIUM 250 MG CAPSULE PO SCH (08:59)
[2016-10-21] MEDS: FOLIC ACID 1 MG TABLET PO SCH (08:59)
[2016-10-21] MEDS ORDERED: LORAZEPAM 1 MG TABLET PO SCH (09:00)
[2016-10-21] MEDS: NICOTINE POLACRILEX 4 MG GUM-PK OF TEN BC PRN (11:01)
--- NOTE | 2016-10-21 11:02 | NUR ---
PRN Nicotine gum 4mg for smoking cessation, will continue to monitor.
[2016-10-21 12:00] VITALS: BP 100/52
--- NOTE | 2016-10-21 12:02 | NUR ---
Reassessment PRN Nicotine gum 4mg for smoking cessation, client stated "The gum does not work for me, I rather have a cigarette."
--- NOTE | 2016-10-21 13:58 | NUR ---
per Dr. Ramos to order PT/INR daily d/t Coumadin therapy.
[2016-10-21 16:00] VITALS: BP 106/58
--- NOTE | 2016-10-21 17:58 | NUR ---
PT 30.4, INR 2.93 Dr. Ramos was notified. he said to give Coumadin 4.5mg
[2016-10-21] MEDS: WARFARIN SODIUM 3 MG TABLET PO SCH (18:07)
--- NOTE | 2016-10-21 19:20 | NUR ---
Start of Shift Patient Received. Patient is in activity room participating in group meeting. Patient is a 31 year old male, admitted on 10/16/16 for Opiate and ETOH Dependence. Patient is currently receiving a 4 day Subutex taper and 5 day Ativan taper. Patient verbalizes no known allergies, wishes to be full code, following a regular diet, placed on fall and seizure precautions, skin noted intact. Patients past medical history verbalized as Protein S deficient and Hep C+. Per endorsement, at 1600 patient noted with a COWS of 3 and CIWA of 2. No other PRN medications administered. All needs attended to promptly. Will continue plan of care as ordered.
--- NOTE | 2016-10-21 19:21 | NUR ---
END OF SHIFT Client is is group therapy. He is a 31 year old male, admitted on 10/16/16 for Opiate and ETOH withdrawal. He is placed on a 4 day Subutex taper and 5 day Ativan taper, tolerating well. He is NKA, full code, regular diet, placed on fall and seizure precautions. Client report discomfort on R AC after blood drawn, cold pack applied, will endorse to incoming nurse to monitor. Patients past medical history verbalized as Protein S deficient and Hep C+. PRN Nicotine gum which patient was able to verbalize was not effective. Client is on seizure and fall precautions. Side rails up/padded x 2, call light within reach, bed locked in lowest positions. Will continue with plan of care
[2016-10-21 20:30] VITALS: BP 116/59
[2016-10-22 00:40] VITALS: BP 118/57
[2016-10-22 04:22] VITALS: BP 110/69
--- NOTE | 2016-10-22 06:59 | NUR ---
End of Shift Patient is in bed sleeping. Breathing even and non labored. No signs of pain or discomfort noted. Patient is a 31 year old male, admitted on 10/16/16 for Opiate and ETOH Dependence. Patient is currently receiving a 4 day Subutex taper and 5 day Ativan taper. Patient verbalizes no known allergies, full code, regular diet, placed on fall and seizure precautions, skin noted intact. Patients past medical history noted as Protein S deficient and Hep C+. Patient continues on Coumadin daily. No PRN medications administered. All needs attended to promptly. Will endorse to continue plan of care as ordered.
--- NOTE | 2016-10-22 07:48 | NUR ---
START OF SHIFT Client is alert and oriented x4, He reports chills, fatigue, leg restlessness, he denies any PERRY, N/V/D. Encouraged to increase fluid intake and activity as tolerated. Encourage to participate in group therapy. Per retail shift manager nurse. Client is a 31 year old male admitted to [facility] for opioids and alcohol withdrawal. He has been placed on a 5 day Ativan and 4 day Subutex taper, tolerating well. Past medical history Protein s deficiency on AC, Hepatitis C virus infection, Alcohol Use Disorder, Chronic Tobacco Use, Opioid Use Disorder, hx of withdrawal-induced seizure (last one 1.5 yrs ago w/etoh withdrawal). He had an uneventful night, he slept 7 hrs. Last COWS 2/ CIWA 2 at 2030.He has 0900 labs PT/INR, he is on anticoagulant therapy Coumadin 4.5mg daily, bruises X 2 on R F/A d/t blood drawn yesterday, no swelling, will continue to monitor. Client is Full Code, regular diet, NKA. Client is on seizure precautions. Side rails up/padded x 2, call light within reach, bed locked in lowest positions. Will continue with plan of care
[2016-10-22 08:00] VITALS: BP 101/61
[2016-10-22] MEDS: CLONIDINE HCL 0.1 MG TABLET PO SCH ×3 (08:39→21:08)
[2016-10-22] MEDS: FOLIC ACID 1 MG TABLET PO SCH (08:39)
[2016-10-22] MEDS: DOCUSATE SODIUM 250 MG CAPSULE PO SCH (08:39)
[2016-10-22] MEDS: MULTIVITAMINS,THERAPEUTIC TABLET PO SCH (08:39)
[2016-10-22] MEDS: LACTOBACILLUS RHAMNOSUS GG 1 EACH CAPSULE PO SCH ×2 (08:39→21:08)
[2016-10-22] MEDS: THIAMINE HCL 100 MG TABLET PO SCH (08:39)
[2016-10-22] MEDS: GABAPENTIN 300 MG CAPSULE PO SCH ×3 (08:39→21:08)
--- NOTE | 2016-10-22 09:47 | NUR ---
MD NOTIFICATION Dr. Ramos notified of PT 36.8 INR 3.57 and that client requests to know testosterone test results. Client is in room, watching TV. Will continue to monitor.
--- NOTE | 2016-10-22 10:03 | NUR ---
Dr. Ramos will hold warfarin dose aneta, Charge nurse made aware.
[2016-10-22 12:00] VITALS: BP 111/58
[2016-10-22 16:41] VITALS: BP 100/57
[2016-10-22] MEDS ORDERED: Gabapentin PO (17:14)
[2016-10-22] MEDS ORDERED: CLON0.1T14 PO (17:14)
[2016-10-22] MEDS ORDERED: WARF4TAB41 PO (17:14)
[2016-10-22] MEDS ORDERED: DICY20TA28 PO (17:14)
[2016-10-22] MEDS ORDERED: LACT1CAP57 PO (17:14)
[2016-10-22] MEDS ORDERED: METH-33 PO (17:14)
--- NOTE | 2016-10-22 19:07 | NUR ---
END OF SHIFT Client is is group therapy. He is a 31 year old male, admitted on 10/16/16 for Opiate and ETOH withdrawal. He completed 4 day Subutex taper and 5 day Ativan taper, with no ASE. Adequate PO intake 2650mL, void x7, stool x 2. He was compliant with 2/3 of group therapy. He is NKA, full code, regular diet, placed on fall and seizure precautions. Patients past medical history verbalized as Protein S deficient and Hep C+. . Client is on seizure and fall precautions. Side rails up/padded x 2, call light within reach, bed locked in lowest positions. Will continue with plan of care
--- NOTE | 2016-10-22 19:15 | NUR ---
Start of Shift Patient Received. Patient is in activity room participating in group meeting. Patient is a 31 year old male, admitted on 10/16/16 for Opiate and ETOH Dependence. Patient received a 4 day Subutex taper and 5 day Ativan taper. Patient verbalizes no known allergies, wishes to be full code, following a regular diet, placed on fall and seizure precautions, skin noted intact. Patients past medical history verbalized as Protein S deficient and Hep C+. Per endorsement, Routine Coumadin held due to labs noted as PT 36.8 and INR 35.7. Patient is set for discharge tomorrow 10/23/16 to [facility]. Discharge Urine drug screen to be provided. At 1642 Patient was noted with a COWS 1 and CIWA 1. Patient is compliant with medications and tolerating plan of care well. All needs attended to promptly. Will continue plan of care as ordered.
[2016-10-22 20:40] VITALS: BP 119/69
[2016-10-22 21:47] LABS: *AMPHETAMINE, URINE NEGATIVE (NEGATIVE); *BARBITURATE, URINE NEGATIVE (NEGATIVE); *CANNABINOID, URINE NEGATIVE (NEGATIVE); *COCCAINE, URINE NEGATIVE (NEGATIVE); *OPIATE, URINE NEGATIVE (NEGATIVE); *PHENCYCLIDINE SCREEN,URINE NEGATIVE (NEGATIVE)
[2016-10-23 00:52] VITALS: BP 112/66
[2016-10-23 04:14] VITALS: BP 105/62
--- NOTE | 2016-10-23 07:12 | NUR ---
End of Shift Patient is in bed sleeping. Breathing even and non labored. No signs of pain or discomfort noted. Patient is a 31 year old male, admitted on 10/16/16 for Opiate and ETOH Dependence. Patient received a 4 day Subutex taper and 5 day Ativan taper. He verbalizes no known allergies, full code, regular diet, placed on fall and seizure precautions, skin noted intact. Past medical history noted as Protein S deficient and Hep C+. No PRN medications administered. Patient is set for discharge today 10/23/[address] [facility]. All needs attended to promptly. Will endorse to continue plan of care as ordered.
--- NOTE | 2016-10-23 07:30 | NUR ---
start of shift note: received pt from laboratory phlebotomist nurse, pt is in stable condition at this time no s/s of pain or discomfort. pt is [facility] to [facility] for opiate/etoh withdrawal/dependence. pt is set for discharge today. will assist pt in discharging and will continue to monitor pt for any changes. pt's last cows 1 and ciwa 1 pt slept for 3 hrs.
[2016-10-23] MEDS: LACTOBACILLUS RHAMNOSUS GG 1 EACH CAPSULE PO SCH (09:04)
[2016-10-23] MEDS: GABAPENTIN 300 MG CAPSULE PO SCH (09:04)
[2016-10-23] MEDS: FOLIC ACID 1 MG TABLET PO SCH (09:04)
[2016-10-23 09:05] VITALS: BP 110/68
[2016-10-23] MEDS: CLONIDINE HCL 0.1 MG TABLET PO SCH (09:05)
[2016-10-23] MEDS: THIAMINE HCL 100 MG TABLET PO SCH (09:05)
[2016-10-23] MEDS: DOCUSATE SODIUM 250 MG CAPSULE PO SCH (09:05)
[2016-10-23] MEDS: MULTIVITAMINS,THERAPEUTIC TABLET PO SCH (09:05)
[2016-10-23 13:06] LABS: *CODEINE Negative (Cutoff=300); *HYDROMORPHONE Negative (Cutoff=300); *OPIATES Positive ng/mL (Cutoff=300)
--- NOTE | 2016-10-23 13:27 | NUR ---
discharge note: pt left the unit in stable condition no s/s of pain or discomfort. pt teaching was administered and pt verbalized understanding. pt left with all personal belongings. pt will be transferred to [facility] via own car. V/S WNL and without withdrawal symptoms
[2016-10-23] MEDS ORDERED: WARFARIN SODIUM 3 MG TABLET PO SCH (17:00)
[2016-10-23] MEDS ORDERED: WARFARIN SODIUM 4 MG TABLET PO SCH (17:00)
== END 2016-10-23 13:25 | disposition other institution (70) | DRG 895 ==
LOC: SRC 11:22
PROVIDERS: ADMIT Internal Medicine; ATTEND Internal Medicine
PROC: HZ2ZZZZ Detoxification Services for Substance Abuse Treatment (ICD-10-PCS; principal; 2016-10-16)
PROC: HZ31ZZZ Individual Counseling for Substance Abuse Treatment, Behavioral (ICD-10-PCS; 2016-10-17)
PROC: HZ41ZZZ Group Counseling for Substance Abuse Treatment, Behavioral (ICD-10-PCS; 2016-10-17)
DX: F10.230 Alcohol dependence with withdrawal, uncomplicated (principal); L03.313 Cellulitis of chest wall; D68.59 Other primary thrombophilia; F10.220 Alcohol dependence with intoxication, uncomplicated; F11.23 Opioid dependence with withdrawal; Y90.9 Presence of alcohol in blood, level not specified; B19.20 Unspecified viral hepatitis C without hepatic coma; Z83.3 Family history of diabetes mellitus; Z59.0 Homelessness; L73.9 Follicular disorder, unspecified; B95.62 Methicillin resistant Staphylococcus aureus infection as the cause of diseases classified elsewhere; F17.290 Nicotine dependence, other tobacco product, uncomplicated; E66.9 Obesity, unspecified; Z68.34 Body mass index [BMI] 34.0-34.9, adult; Z91.19 Patient's noncompliance with other medical treatment and regimen
CPT/HCPCS: 36415; 70030-TC; 80307; 80361; 83690; 83735; 84403; 84443; 85025; 85610; 86580; 86592; 86705; 86803; 87340; 87806; A4663; G6040-TC; J2405; J3411; Q0162; Q0163

== ENCOUNTER 2016-12-02 17:34 | Inpatient (IN) | payer BC, OTHER ==
[~2016-12-02] VITALS: Ht 177.8 cm; Wt 108.0 kg
[~2016-12-02 17:34] MED LIST: CLON0.1T14 PO; DICY20TA28 PO; Gabapentin PO; LACT1CAP57 PO; METH-33 PO; TEST200V4 IM; WARF4TAB41 PO
[2016-12-02] MEDS ORDERED: LORAZEPAM 2 MG/1 ML VIAL IM PRN (18:30)
[2016-12-02] MEDS ORDERED: METHOCARBAMOL 750 MG TABLET PO PRN (18:30)
[2016-12-02] MEDS ORDERED: CLONIDINE HCL 0.1 MG TABLET PO PRN (18:30)
[2016-12-02] MEDS ORDERED: BUPRENORPHINE HCL 2 MG TAB.SUBL SL PRN (18:30)
[2016-12-02] MEDS ORDERED: MAGNESIUM HYDROXIDE 30 ML LIQUID UDC PO PRN (18:30)
[2016-12-02] MEDS ORDERED: HYDROXYZINE PAMOATE 25 MG CAPSULE PO PRN (18:30)
[2016-12-02] MEDS ORDERED: DICYCLOMINE HCL 20 MG TABLET PO PRN (18:30)
[2016-12-02] MEDS ORDERED: ACETAMINOPHEN 325 MG TABLET PO PRN (18:30)
[2016-12-02] MEDS ORDERED: ONDANSETRON 4 MG/2 ML VIAL IM PRN (18:30)
[2016-12-02] MEDS ORDERED: LORAZEPAM 1 MG TABLET PO PRN ×2 (18:30)
[2016-12-02] MEDS ORDERED: LOPERAMIDE HCL 2 MG CAPSULE PO PRN ×2 (18:30)
[2016-12-02] MEDS ORDERED: THIAMINE HCL 200 MG/2 ML VIAL IM ONE (18:30)
[2016-12-02] MEDS ORDERED: IBUPROFEN 600 MG TABLET PO PRN (18:30)
[2016-12-02] MEDS ORDERED: MIRALAX 17 GM POWD.PACK PO PRN (18:30)
[2016-12-02] MEDS ORDERED: MAG HYDROX/AL HYDROX/SIMETH 30 ML LIQUID UDC PO PRN (18:30)
[2016-12-02] MEDS ORDERED: diphenhydrAMINE 50 MG CAPSULE PO PRN (18:30)
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
[2016-12-02 18:50] LABS: *AMPHETAMINE, URINE POSITIVE (NEGATIVE); *BARBITURATE, URINE POSITIVE (NEGATIVE); *CANNABINOID, URINE NEGATIVE (NEGATIVE); *COCCAINE, URINE NEGATIVE (NEGATIVE); *OPIATE, URINE POSITIVE (NEGATIVE); *PHENCYCLIDINE SCREEN,URINE NEGATIVE (NEGATIVE)
[2016-12-02 20:00] VITALS: BP 120/63
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
[2016-12-02] MEDS ORDERED: GABAPENTIN 300 MG CAPSULE ONE (20:10)
[2016-12-02] MEDS ORDERED: BUPRENORPHINE HCL 2 MG TAB.SUBL SL ONE (20:11)
[2016-12-02] MEDS ORDERED: LORAZEPAM 1 MG TABLET ONE (20:11)
[2016-12-02] MEDS: GABAPENTIN 300 MG CAPSULE PO SCH (20:14)
[2016-12-02] MEDS ORDERED: LORAZEPAM 1 MG TABLET PO SCH (21:00)
[2016-12-02] MEDS ORDERED: BUPRENORPHINE HCL 2 MG TAB.SUBL SL SCH (21:00)
[2016-12-03] VITALS: BP 108/54
--- NOTE | 2016-12-03 | NUR ---
Vital Signs BP 108/54, pulse 70, respirations 16 Spo2 96%, temp 97.7, no pain 0/10 COWS/CIWA deferred to pt sleeping to assess while pt is awake as ordered. Safety measures in place. Will continue to monitor.
[2016-12-03 04:00] VITALS: BP 124/55
--- NOTE | 2016-12-03 04:00 | NUR ---
Vital Signs BP 124/55, pulse 91, respirations 18 Spo2 100%, temp 98.9, no pain 0/10 COWS/CIWA deferred to pt sleeping to assess while pt is awake as ordered. Safety measures in place. Will continue to monitor.
--- NOTE | 2016-12-03 07:00 | NUR ---
End of Shift Pt is a 31 year old male admitted for Opiate/ETOH dependence. Pt reported using Whiskey 750ml/daily, last intake on 12/01/2016 of 750ml, Heroin IV 1-2g/daily, last intake on 12/01/2016 of 2 grams, and Methamphetamine IV 0.5g/daily, last intake on 12/01/2016 of 0.5g. PT relapsed 2 weeks ago. PMH: Hepatitis C, Protein S deficiency, anxiety, bipolar, eating disorder, back injury and hx of suicide attempt, hx of MRSA, as reported by pt. NKA, fall/seizure precautions seizure episode in 2016 d/t withdrawal. During shift, scheduled medications administered COWS 9 and CIWA 9. No PRN medications administered. Pt slept for 8 hours, intake of 1191 ml PO and voids 2. Safety measures in place, call light within reach, side rails up x2, bed locked and in low position. Endorsed to day shift nurse.
[2016-12-03 07:29] LABS: BASOPHILS % (AUTO) 0.7 % (0.0-2.0); EOSINOPHILS # (AUTO) 0.3 K/uL (0.0-0.7); EOSINOPHILS % (AUTO) 4.5 % (0.0-7.0); HEMATOCRIT 50.1 % (40-50); LYMPHOCYTES # (AUTO) 1.9 K/UL (0.8-4.8); LYMPHOCYTES % (AUTO) 33.7 % (20.5-51.5); MEAN CORPUSCULAR HEMOGLOBIN 28.9 UUG (27.0-31.0); MEAN CORPUSCULAR HGB CONC 34 g/dL (32.0-37.0); MEAN CORPUSCULAR VOLUME 85.5 FL (82.0-92.0); MONOCYTES # (AUTO) 0.4 K/UL (0.1-1.30); MONOCYTES % (AUTO) 6.6 % (0.0-11.0); NEUTROPHILS # (AUTO) 3.1 K/UL (1.8-8.9); NEUTROPHILS % (AUTO) 54.5 % (38.5-71.5); PLATELET COUNT (AUTO) 266 K/UL (150-450); RED BLOOD CELL COUNT(AUTO) 5.86 MIL/UL (4.7-6.1); WHITE BLOOD COUNT (AUTO) 5.7 K/UL (4.0-11.2)
[2016-12-03 07:42] LABS: ETHANOL < 3 MG/DL (0-0)
[2016-12-03 07:43] LABS: ALANINE AMINOTRANSFERASE 57 U/L (16-63); ALKALINE PHOSPHATASE 57 U/L (50-136); AMYLASE 28 U/L (25-115); ASPARTATE AMINOTRANSFERASE 52 U/L (15-37); BILIRUBIN,TOTAL 0.5 mg/dL (0.2-1.0); CARBON DIOXIDE 29 mmol/L (21-32); CHLORIDE 102 mmol/L (98-107); CREATININE 1.1 mg/dL (0.6-1.3); GLUCOSE 123 mg/dL (74-106); LIPASE 172 U/L (73-393); MAGNESIUM 1.9 mg/dL (1.8-2.4); POTASSIUM 3.7 mmol/L (3.5-5.1); TOTAL PROTEIN, SERUM 7.6 g/dL (6.4-8.2); UREA NITROGEN, BLOOD 12 mg/dL (7-18)
--- NOTE | 2016-12-03 07:44 | NUR ---
START OF SHIFT NOTE Received pt this am AOx4. Patient states he feels horrible. He reports diarrhea, shakiness, and lightheadedness. No PRNs given during night court magistrate. Labs have not been completed yet. Patient slept 8 hours. Last CIWA 9 COWS [address] Encouraged pt to increase fluid intake to facilitate detox and increase hydration. Encouraged pt to notify RN when s/s of w/d worsen. Will provide safe and supportive environment. Will continue to monitor.
[2016-12-03 07:56] LABS: THYROID STIMULATING HORMONE 0.982 mIU/mL (0.358-3.740)
[2016-12-03 08:00] VITALS: BP_SYST 130; BP_DIAS 56; BP_DIAS 60
[2016-12-03] MEDS: BUPRENORPHINE HCL 2 MG TAB.SUBL SL SCH ×3 (08:36→20:36)
[2016-12-03] MEDS: MULTIVITAMINS,THERAPEUTIC TABLET PO SCH (08:37)
[2016-12-03] MEDS: THIAMINE HCL 100 MG TABLET PO SCH (08:37)
[2016-12-03] MEDS: FOLIC ACID 1 MG TABLET PO SCH (08:37)
[2016-12-03] MEDS: GABAPENTIN 300 MG CAPSULE PO SCH ×3 (08:37→20:32)
[2016-12-03] MEDS: LORAZEPAM 1 MG TABLET PO SCH ×3 (08:37→20:32)
[2016-12-03] MEDS ORDERED: TUBERCULIN,PURIF.PROT.DERIV. 5 TU/0.1 ML TEST ID ONE (09:00)
[2016-12-03 12:00] VITALS: BP 115/65
[2016-12-03] MEDS ORDERED: BUPRENORPHINE HCL 2 MG TAB.SUBL SL ONE (12:15)
[2016-12-03 16:00] VITALS: BP 127/70
[2016-12-03] MEDS ORDERED: WARFARIN SODIUM 5 MG TABLET PO SCH ×2 (18:00)
--- NOTE | 2016-12-03 18:36 | NUR ---
END OF SHIFT NOTE Patient continues on 4 day Ativan/ 4 day Subutex taper and tolerating well. No PRNs given during shift as detox meds are effective. Last COWS 7 CIWA 8. Patient attended groups today. TB test administered during shift. All needs have been met. All safety measures in place. Will pass shift report to oncoming shift.
[2016-12-03 20:00] VITALS: BP 139/64
--- NOTE | 2016-12-03 20:00 | NUR ---
Start of Shift Pt is a 31 year old male admitted for Opiate/ETOH dependence, placed on 4 day Ativan and 4 day Subutex taper. Pt reported using Whiskey 750ml/daily, Heroin IV 1-2g/daily, and Methamphetamine IV 0.5g/daily PMH: Hepatitis C, Protein S deficiency, anxiety, bipolar, eating disorder, back injury and hx of suicide attempt, hx of MRSA, as reported by pt. NKA, fall/seizure precautions seizure episode in 2016 d/t withdrawal. Upon assessment, pt presented with anxiety, chills throughout body, body aches, unable to sit still with lightheadedness. Respirations even/unlabored, denies SOB/chest pain, bowel sounds active x4, abdomen soft. Safety measures in place, call light within reach, side rails up x2, bed locked and in low position. Will continue to monitor.
[2016-12-04] VITALS: BP 127/68
--- NOTE | 2016-12-04 | NUR ---
Vital Sign BP 127/68, pulse 68, respirations 16, Spo2 98%, temp 97.6, no pain reported 0/10 COWS/CIWA deferred d/t pt sleeping to ass while pt is awake as ordered. Safety measures in place, will continue to monitor.
[2016-12-04 04:00] VITALS: BP 102/53
--- NOTE | 2016-12-04 04:00 | NUR ---
Vital Sign BP 102/53, pulse 61, respirations 18, Spo2 97%, temp 97.8, no pain reported 0/10 COWS/CIWA deferred d/t pt sleeping to ass while pt is awake as ordered. Safety measures in place, will continue to monitor.
--- NOTE | 2016-12-04 07:00 | NUR ---
End of Shift Pt is a 31 year old male admitted for Opiate/ETOH dependence, placed on 4 day Ativan and 4 day Subutex taper. Pt reported using Whiskey 750ml/daily, Heroin IV 1-2g/daily, and Methamphetamine IV 0.5g/daily PMH: Hepatitis C, Protein S deficiency, anxiety, bipolar, eating disorder, back injury and hx of suicide attempt, hx of MRSA, as reported by pt. NKA, fall/seizure precautions seizure episode in 2016 d/t withdrawal. During shift, pt presented with anxiety, chills throughout body, body aches, unable to sit still with lightheadedness scheduled taper medications administered, effective in management of s/s of withdrawal as reported by pt, COWS 7 and CIWA 7. No PRN medications administered during shift. Pt slept for 9 hours, intake of 1550 ml Po and voids x2. Safety measures in place, call light within reach, side rails up x2, bed locked and in low position. Endorsed to day shift nurse.
[2016-12-04 07:49] LABS: BILIRUBIN,DIRECT 0.1 mg/dL (0.0-0.2); BILIRUBIN,TOTAL 0.4 mg/dL (0.2-1.0); MAGNESIUM 1.8 mg/dL (1.8-2.4); POTASSIUM 4.3 mmol/L (3.5-5.1)
[2016-12-04 08:00] VITALS: BP 112/64
--- NOTE | 2016-12-04 08:00 | NUR ---
START OF SHIFT NOTE Received pt this am AOx4. Patient states he feels "bad" this morning and just wants to continue sleeping. Patient was able to stay awake and communicate well while in the room. No PRNs given during night order selector. Patient slept 9 hours. Last CIWA 6 COWS 5 at 0800 this morning. Encouraged pt to increase fluid intake to facilitate detox and increase hydration. Encouraged pt to attend groups and activities to increase coping skills. Encouraged pt to notify RN when s/s of w/d worsen. Will provide safe and supportive environment. Will continue to monitor.
[2016-12-04 08:09] LABS: TOTAL PROTEIN, SERUM 6.9 g/dL (6.4-8.2)
[2016-12-04] MEDS ORDERED: BUPRENORPHINE HCL 2 MG TAB.SUBL SL SCH (09:00)
[2016-12-04] MEDS: LORAZEPAM 1 MG TABLET PO SCH ×4 (09:12→20:46)
[2016-12-04] MEDS: THIAMINE HCL 100 MG TABLET PO SCH (09:13)
[2016-12-04] MEDS: GABAPENTIN 300 MG CAPSULE PO SCH ×3 (09:13→20:46)
[2016-12-04] MEDS: MULTIVITAMINS,THERAPEUTIC TABLET PO SCH (09:13)
[2016-12-04] MEDS: FOLIC ACID 1 MG TABLET PO SCH (09:13)
[2016-12-04 12:00] VITALS: BP 119/50
--- NOTE | 2016-12-04 14:08 | NUR ---
Clinician encouraged client to attend the afternoon group. Client said he might. He complained of not feeling well.
[2016-12-04] MEDS: BUPRENORPHINE HCL 2 MG TAB.SUBL SL SCH ×2 (14:23→21:15)
[2016-12-04 16:00] VITALS: BP 120/51
[2016-12-04] MEDS: WARFARIN SODIUM 10 MG TABLET PO SCH (16:50)
[2016-12-04] MEDS ORDERED: WARFARIN SODIUM 2 MG TABLET PO SCH ×2 (17:00)
--- NOTE | 2016-12-04 18:26 | NUR ---
END OF SHIFT NOTE Patient continues on 4 day Ativan/ 4 day Subutex taper and tolerating well. He presents with blunted mood and affect during shift. No PRNs given during shift as detox meds are effective. Last COWS 7 CIWA 6. Patient did not attend groups or activities today. Patient isolated self in room and slept most of shift. TB test administered during shift. All needs have been met. All safety measures in place. Will pass shift report to oncoming shift.
[2016-12-04 20:00] VITALS: BP 105/64
--- NOTE | 2016-12-04 20:00 | NUR ---
Start of Shift Pt is a 31 year old male admitted for Opiate/ETOH dependence, placed on 4 day Ativan and 4 day Subutex taper. Pt reported using Whiskey 750ml/daily, Heroin IV 1-2g/daily, and Methamphetamine IV 0.5g/daily PMH: Hepatitis C, Protein S deficiency, anxiety, bipolar, eating disorder, back injury and hx of suicide attempt, hx of MRSA, as reported by pt. NKA, fall/seizure precautions seizure episode in 2016 d/t withdrawal. Upon assessment, pt reports feeling fatigue, abdominal cramping, with body aches. Respirations even/unlabored, denies SOB/chest pain, bowel sounds active x4, abdomen soft. Safety measures in place, call light within reach, side rails up x2, bed locked and in low position. Will continue to monitor.
[2016-12-05] VITALS: BP 135/76
--- NOTE | 2016-12-05 | NUR ---
Vital Sign BP 135/76, pulse 82, respirations 20, Spo2 96%, temp 97.6, no pain reported 0/10 COWS/CIWA deferred d/t pt sleeping to asses while pt is awake as ordered. Safety measures in place, will continue to monitor.
[2016-12-05 04:00] VITALS: BP 126/59
--- NOTE | 2016-12-05 04:00 | NUR ---
Vital Sign BP 126/59, pulse 71, respirations 16, Spo2 98%, temp 97.8, no pain reported 0/10 COWS/CIWA deferred d/t pt sleeping to asses while pt is awake as ordered. Safety measures in place, will continue to monitor.
--- NOTE | 2016-12-05 07:00 | NUR ---
End of Shift Pt is a 31 year old male admitted for Opiate/ETOH dependence, placed on 4 day Ativan and 4 day Subutex taper. Pt reported using Whiskey 750ml/daily, Heroin IV 1-2g/daily, and Methamphetamine IV 0.5g/daily PMH: Hepatitis C, Protein S deficiency, anxiety, bipolar, eating disorder, back injury and hx of suicide attempt, hx of MRSA, as reported by pt. NKA, fall/seizure precautions seizure episode in 2016 d/t withdrawal. During shift, pt reported feeling fatigue, abdominal cramping, with body aches - scheduled taper medications administered, effective in management of s/s of withdrawal, CIWA 5 and COWS 6. No PRN medications administered during shift. Pt slept for 7 hours, intake of 1000 ml PO and voids x2. Safety measures in place, call light within reach, side rails up x2, bed locked and in low position. Endorsed to day shift nurse.
--- NOTE | 2016-12-05 07:50 | NUR ---
START OF SHIFT NOTE Received report from night nurse, 31 year old male admitted for Opiate/ETOH dependence, placed on 4 day Ativan and 4 day Subutex taper. Pt reported using Whiskey 750ml/daily, Heroin IV 1-2g/daily, and Methamphetamine IV 0.5g/daily Pt reported PMH of Hepatitis C, Protein S deficiency, anxiety, bipolar, eating disorder, back injury and hx of suicide attempt, MRSA, as reported by pt. NKA, fall/seizure precautions seizure episode in 2016 d/t withdrawal. Pt did not receive any PRN, slept for 7 hours, Last CIWA-5, COWS-6. Upon assessment, Pt is resting in his room in stable condition, breathing normal no SOB noted. Skin intact warm and dry to touch. Safety measures in place, call light within reach. Will cont to monitor.
[2016-12-05 08:00] VITALS: BP 120/63
[2016-12-05] MEDS: THIAMINE HCL 100 MG TABLET PO SCH (08:31)
[2016-12-05] MEDS: BUPRENORPHINE HCL 2 MG TAB.SUBL SL SCH ×3 (08:31→20:35)
[2016-12-05] MEDS: MULTIVITAMINS,THERAPEUTIC TABLET PO SCH (08:31)
[2016-12-05] MEDS: GABAPENTIN 300 MG CAPSULE PO SCH ×3 (08:31→20:35)
[2016-12-05] MEDS: FOLIC ACID 1 MG TABLET PO SCH (08:31)
[2016-12-05] MEDS: LORAZEPAM 1 MG TABLET PO SCH ×3 (08:31→20:35)
[2016-12-05] MEDS ORDERED: BUPRENORPHINE HCL 2 MG TAB.SUBL SL ONE (10:30)
--- NOTE | 2016-12-05 10:50 | NUR ---
Subutex 2 mg SL given x 1 Patient's COWS increased from 5 to 13. Presented with restless legs, muscle aches, chills, and hot flashes, Frequent shifting, anxiety. Medicated patient with x 1 dose of Subutex 2 mg SL per MD. Will cont to monitor and reassess the pt.
--- NOTE | 2016-12-05 11:20 | NUR ---
Re-assessment: COWS 5. Less restlessness and less anxiety, able to sit still. Subutex 4 mg SL x 1 was effective.
[2016-12-05] MEDS ORDERED: KETOROLAC TROMETHAMINE 30 MG INJ IM PRN (11:30)
[2016-12-05 12:00] VITALS: BP 129/86
[2016-12-05] MEDS: BACLOFEN 10 MG TABLET PO SCH ×2 (14:26→20:35)
[2016-12-05 16:00] VITALS: BP 120/58
[2016-12-05] MEDS: WARFARIN SODIUM 10 MG TABLET PO SCH (16:11)
--- NOTE | 2016-12-05 16:46 | NUR ---
CARE ENDORSED All pertinent information given and care endorsed to nurse in charge. Vital signs stable Last COWS-4.
--- NOTE | 2016-12-05 16:47 | NUR ---
Assumed Care: Assumed care for the patient at this time. Patient is a 31 year old male admitted for ETOH and Opiate dependence who was placed on a 4-day Subutex and 4-day Ativan taper as ordered. No adverse reactions noted. Has past medical hx of Hep C, bipolar disorder, anxiety, eating disorder, back injury, hx of MRSA and hx of SA. Denies any S/i or H/I noted at this time. Last COWS 4. Additional Subutex 2 mg SL x 1 was given per MD. FITCH. FULL CODE. Regular diet. Patient is having dinner at this time. Will continue to monitor closely.
--- NOTE | 2016-12-05 18:47 | NUR ---
End of Shift Notes: Patient is a 31 year old male admitted for ETOH and opiate and methamphetamine dependence who was placed on a 4-day Subutex and 4-day Ativan taper as ordered. No adverse reactions noted. Has past medical hx of Hep C, Protein Deficiency, anxiety, bipolar disorder, eating disorder, back injury, hx of MRSA and hx of SA. Denies any S/I or H/I at this time. Prior to admission, patient was using 750cc of whiskey, 1-2 grams of heroin and 0.5g of methamphetamine. NKA. FULL CODE. Regular diet. On fall and seizure precautions. VS monitored closely. No significant abnormalities noted. Withdrawal symptoms closely monitored. Patient presented with nasal stuffiness, fine tremors and anxiety. Participated in group and therapy sessions. Compliant with care and treatment. All needs met and attended. Will continue to monitor closely.
[2016-12-05 20:00] VITALS: BP 120/61
--- NOTE | 2016-12-05 20:15 | NUR ---
Assessment and MD Communication: Pt c/o burning pain sensation on L knee. Noted knee with redness. Pt stated he wanted to talk to MD because he was concerned about his hx of bloot clots which may be affecting his knee. MD made aware of pt concern and PT/INR results. MD ordered for warm packs for comfort and if pt is still concerned of his knee, to call MD again to obtain US for possible DVT. Pt complied with no further complaints. Will continue to monitor.
--- NOTE | 2016-12-06 | NUR ---
Patient refused to be awakened for V/S to be done at this time.
--- NOTE | 2016-12-06 04:00 | NUR ---
Patient refused to be awakened for V/S to be awakened at this time.
[2016-12-06 07:38] LABS: HEPATITIS B SURFACE AG Negative (Negative)
[2016-12-06 08:00] VITALS: BP 119/66
--- NOTE | 2016-12-06 08:15 | NUR ---
START OF SHIFT NOTE Received pt this AM aox4. Patient appears agitated and anxious. He complains of pain,redness, and warmth to right knee. Notified Dr. Falcon of findings and patient request for ultrasound. Patient continues on 4 day Ativan/4 day Subutex taper and tolerating well. No PRNs given during the night per night nurse. Patient slept 9 hours. COWS 6 CIWA 8 at 0800 this am. Encouraged attendance of groups and activities this shift. Encouraged pt to increase fluid intake. Will provide safe and supportive environment. Will continue to monitor.
[2016-12-06] MEDS: BUPRENORPHINE HCL 2 MG TAB.SUBL SL SCH ×2 (08:54→21:02)
[2016-12-06] MEDS: MULTIVITAMINS,THERAPEUTIC TABLET PO SCH (08:54)
[2016-12-06] MEDS: LORAZEPAM 1 MG TABLET PO SCH ×2 (08:54→21:02)
[2016-12-06] MEDS: FOLIC ACID 1 MG TABLET PO SCH (08:54)
[2016-12-06] MEDS: BACLOFEN 10 MG TABLET PO SCH (08:54)
[2016-12-06] MEDS: THIAMINE HCL 100 MG TABLET PO SCH (08:54)
[2016-12-06] MEDS: GABAPENTIN 300 MG CAPSULE PO SCH ×3 (08:54→21:02)
[2016-12-06 12:00] VITALS: BP 105/53
--- NOTE | 2016-12-06 12:05 | NUR ---
PRN MEDS PRN Robaxin and Ibuprofen given for headache and generalized body aches 6/10 on pain scale. Will reassess
--- NOTE | 2016-12-06 12:45 | NUR ---
PRN REASSESSMENT Patient reports pain has decreased to 4/10. Will monitor
[2016-12-06] MEDS: BACLOFEN 20 MG TABLET PO SCH ×2 (14:25→21:02)
[2016-12-06] MEDS: ONDANSETRON ODT 4 MG TAB.RAPDIS SL PRN ×2 (14:30→21:02)
--- NOTE | 2016-12-06 14:30 | NUR ---
PRN MEDS PRN Zofran given for c/o nausea. Will reassess
[2016-12-06] MEDS ORDERED: BUPRENORPHINE HCL 2 MG TAB.SUBL SL ONE (15:00)
[2016-12-06] MEDS ORDERED: BACLOFEN 10 MG TABLET PO SCH (15:00)
--- NOTE | 2016-12-06 15:15 | NUR ---
PRN REASSESSMENT Patient states his nausea has improved. Will continue monitoring
[2016-12-06 16:00] VITALS: BP 139/55
[2016-12-06] MEDS ORDERED: WARFARIN SODIUM 10 MG TABLET PO SCH (17:00)
[2016-12-06] MEDS: WARFARIN SODIUM 5 MG TABLET PO SCH (17:21)
--- NOTE | 2016-12-06 18:21 | NUR ---
END OF SHIFT NOTE Patient continues on 4 day Ativan/ 4 day Subutex taper and tolerating well. He presents with blunted mood and affect during shift. PRN Robaxin, Ibuprofen, and Zofran given during shift with effectiveness.. Last COWS 4 CIWA 5. Patient attended some groups or activities today. Patient isolated self in room and slept most of shift. TB read and was negative. Ultrasound of right left completed and superficial thrombophlebitis noted in right anterior thigh. All needs have been met. All safety measures in place. Will pass shift report to oncoming shift.
--- NOTE | 2016-12-06 19:15 | NUR ---
Start of Shift Note: Patient is a 31 y/o male admitted on 12/02/16 for Opiate and Benzo dependence. Patient reported drinking 750ml of whiskey daily, Heroin IV 1-2g/daily and Meth IV 0.5g/daily for 2 weeks. Patient with past medical history of Hep C, Protein deficiency, Anxiety, Bipolar disorder, Eating disorder, Back injury, Seizure d/t benzo withdrawal in 2016, Hx of MRSA & Hx of Suicide Attempt. Fall & Seizure precaution noted. Patient is on a regular diet with no known food and drug allergies. Full Code status. Patient is chago 4-day Ativan & 4-day Subutex taper and tolerating well. Last COWS 4 CIWA 5. Pt was given PRN Motrin, Robaxin & Zofran during day shift. Ultrasound done on right lower extremity, superficial thrombophlebitis noted on right anterior thigh. AM nurse notified MD and he is aware. Patient is alert & oriented x4. No shortness of breath noted. Respiration even & unlabored. Abdomen soft & non-distended. Nausea noted with no episode of vomiting. Patient complains of 4/10 generalized body aches, & stomach cramps. Bilateral hand tremors felt. Patient denies hallucinations. Safety precautions are in place. Bed locked in lowest position. Both side rails up. Call light within pts reach. Will continue to monitor patient.
[2016-12-06 20:00] VITALS: BP 117/62
--- NOTE | 2016-12-06 21:02 | NUR ---
PRN Zofran Patient complains of nausea. No episode of vomiting noted. PRN Zofran administered as ordered. Will reassess in 1 hour. Will continue to monitor patient.
--- NOTE | 2016-12-06 22:02 | NUR ---
PRN Reassessment Patient verbalized improved nausea. Will continue to monitor patient.
[2016-12-07] VITALS: BP 121/61
--- NOTE | 2016-12-07 | NUR ---
Cows/Ciwa deferred Patient Vitals taken and is WNL. Patient asleep at this time and refused to be assessed for Cows and Ciwa. Patient lying in bed with eyes closed. Patient appears calm and comfortable. No facial grimacing noted. Safety measures in place. Will continue to monitor patient.
[2016-12-07 04:00] VITALS: BP 126/70
--- NOTE | 2016-12-07 07:10 | NUR ---
End of Shift Note: Patient had an uneventful night. Patient continued on a 4-day Subutex and 4-day Ativan taper and tolerating well. Last COWS 5 CIWA 3 noted. Patient was given PRN Zofran during my shift and was effective. Pt remained stable and vitals remains WNL. Pt reported taper medication is effective in decreasing symptoms of withdrawal. Pt is compliant with medications and treatment plan. Pt was able to sleep for a total of 7 hours. Pt consumed 1092ml of fluids. Voided 2x with 1x bowel movement. All needs attended & met. Safety measures in place. Will endorse pt to day shift nurse.
--- NOTE | 2016-12-07 07:44 | NUR ---
BEGINNING OF SHIFT Patient endorsement report received from warehouse worker 2nd shift nurse, all pertinent information discussed. patient with admitting Dx: Etoh/opiate dependence. Patient currently with ongoing 4 day Ativan and 5 day Subutex taper as ordered, well tolerated, no ASE noted. patient currently on day 4 of taper. Patient admitted on the: 12/02/2016. As per warehouse worker 2nd shift patient slept for 7 hours, received PRN: Zofran, as per warehouse worker 2nd shift medication effective. Patient with last cow score of: 5, and last ciwa score of: 3. Patient received in bed with eyes closed, respirations even and unlabored, responsive to verbal stimuli, educated patient regarding plan of care for the day and medication regimen with good verbal understanding. safety measures in place. will continue to monitor.
[2016-12-07 08:15] VITALS: BP 111/64
[2016-12-07] MEDS: THIAMINE HCL 100 MG TABLET PO SCH (09:00)
[2016-12-07] MEDS: FOLIC ACID 1 MG TABLET PO SCH (09:00)
[2016-12-07] MEDS ORDERED: BUPRENORPHINE HCL 2 MG TAB.SUBL SL SCH ×2 (09:00→21:00)
[2016-12-07] MEDS: BACLOFEN 20 MG TABLET PO SCH ×3 (09:00→22:17)
[2016-12-07] MEDS: MULTIVITAMINS,THERAPEUTIC TABLET PO SCH (09:00)
[2016-12-07] MEDS: GABAPENTIN 300 MG CAPSULE PO SCH ×3 (09:00→22:18)
[2016-12-07] MEDS ORDERED: LORAZEPAM 1 MG TABLET PO ONE (13:00)
[2016-12-07 13:05] VITALS: BP 125/64
[2016-12-07] MEDS ORDERED: HYDR-3895 PO (15:13)
[2016-12-07] MEDS ORDERED: DIPH50CA37 PO (15:13)
[2016-12-07] MEDS ORDERED: GABA-534 PO (15:13)
[2016-12-07] MEDS ORDERED: WARF5TAB77 PO (15:13)
[2016-12-07] MEDS ORDERED: CLON0.1T14 PO (15:13)
[2016-12-07] MEDS ORDERED: IBUP-1955 PO (15:13)
[2016-12-07] MEDS ORDERED: DICY20TA28 PO (15:13)
[2016-12-07] MEDS ORDERED: BACL20TA PO (15:13)
[2016-12-07 17:00] VITALS: BP 137/65
[2016-12-07] MEDS: WARFARIN SODIUM 5 MG TABLET PO SCH (17:05)
[2016-12-07 18:38] LABS: *AMPHETAMINE, URINE NEGATIVE (NEGATIVE); *BARBITURATE, URINE POSITIVE (NEGATIVE); *CANNABINOID, URINE NEGATIVE (NEGATIVE); *COCCAINE, URINE NEGATIVE (NEGATIVE); *OPIATE, URINE NEGATIVE (NEGATIVE); *PHENCYCLIDINE SCREEN,URINE NEGATIVE (NEGATIVE)
--- NOTE | 2016-12-07 19:07 | NUR ---
END OF SHIFT Patient alert and oriented x4, vital signs stable during shift. Patient with admitting Dx: Opiate/Etoh Dependence. Patient with ongoing 4 day Ativan and 4 day Subutex taper as ordered,w ell tolerated, no ASE noted. Patient s 0900 assessment patient presented with: mild bone and joint aches, moist eyes, tremors that can be felt but not seen, and mild anxiety with cow score of: 4 and ciwa score of: 2; 1300 assessment patient presented with: mild bone and joint aches, moist eyes, tremors that can be felt but not seen, and mild anxiety with cow score of: 4 and ciwa score of: 2. 1700 assessment patient presented with: : mild bone and joint aches, moist eyes, tremors that can be felt but not seen, and mild anxiety with cow score of: 4 and ciwa score of: 2. Patient continue on Coumadin therapy as ordered, medication administered as ordered, no s/sx of unusual bleeding noted. Last PT: 28.9, INR: 2.81. Patient encouraged adequate PO fluid intake as tolerated. Encouraged to attend group therapies/sessions to learn new coping skills to prevent relapse, denies any SI/HI. Safety measures in place. Patient is scheduled to be discharged tomorrow, noted self motivated towards sobriety. No PRN medications were administered during shift. call light kept with in reach. all needs met and rendered. patient endorsed to shift coordinator nurse, all pertinent information discussed.
--- NOTE | 2016-12-07 19:15 | NUR ---
Start of Shift Note: Patient is a 31 y/o male admitted on 12/02/16 for Opiate and Benzo dependence. Patient with past medical history of Hep C, Protein deficiency, Anxiety, Bipolar disorder, Eating disorder, Back injury, Seizure d/t benzo withdrawal in 2016, Hx of MRSA & Hx of Suicide Attempt. Fall & Seizure precaution noted. Patient is on a regular diet with no known food and drug allergies. Full Code status. Patient completed his Ativan & Subutex taper and he is scheduled to be discharge tomorrow. Urine drug screen collected and resulted. Last COWS 4 CIWA 2. Pt was given a one time Ativan 1mg per MD orders. Patient is alert & oriented x4. No shortness of breath noted. Respiration even & unlabored. Abdomen soft & non-distended. No nausea noted. Patient complains of 8/10 pain on right anterior thigh, sweating and chills. No tremors noted. Patient denies hallucinations. Safety precautions are in place. Bed locked in lowest position. Both side rails up. Call light within pts reach. Will continue to monitor patient.
[2016-12-07 20:00] VITALS: BP 119/55
--- NOTE | 2016-12-07 22:23 | NUR ---
PRN Toradol Patient complains of 8/10 pain on right anterior thigh. Patient noted with facial grimacing and verbalized that pain is worst when ambulating. PRN Toradol administered as ordered. Will reassess in 1 hour. Will continue to monitor patient.
--- NOTE | 2016-12-07 23:23 | NUR ---
PRN Reassessment Patient verbalized decreased pain and noted with tolerable pain at this time. Patient lying in bed and appears calm and comfortable. No s/s of distress noted. Safety measures in place. Will continue to monitor patient.
[2016-12-08] VITALS: BP 125/62
--- NOTE | 2016-12-08 07:06 | NUR ---
End of Shift Note: Patient is a 31 y/o male admitted on 12/02/16 for Opiate and Benzo dependence. Patient completed his Ativan & Subutex taper and he is scheduled to be discharge tomorrow. Urine drug screen collected and resulted. Patient had an uneventful night. Pt remained stable and Vitals WNL. Pt continues on Coumadin daily for DVT. Patient was given PRN Toradol for right anterior thigh pain and was effective. Pt still asleep at this time with no s/s of distress noted. Patient able to sleep for a total of 6 hours. Pt consumed 2155ml of fluids. Voided 5x with 2x bowel movement. All needs attended & met. Safety precautions are in place. Will endorse pt to day shift nurse.
--- NOTE | 2016-12-08 07:10 | NUR ---
Start of Shift Patient Received from assistant shift supervisor nurse. Patient is a 31 y/o male admitted on 12/02/16 for Opiate and Benzo dependence. Pt is full code regular diet on fall and seizure precautions denies any food or drug allergies. Pt completed his 4 day Ativan and 4 day Subutex tapers, tolerated well. Pt to be discharged today, urine drug screen completed, pt will be educated about discharge process and what to do following his discharge. Pts last CIWA 2 and COWS 4 which was taken at 0400. Pt received PRN Toradol 30mg IM injection for pain, medication effective per assistant shift supervisor nurse. Pt continues on Coumadin daily for DVT. Pt is currently in his room packing his stuff, upon assessment pt c/o anxiety, presented with sweats and minor tremors. Pt slept a total of 6 hours last night. All safety measures in place per hospital policy. Bed in lowest position, side rails up x2, call-light within reach. Will continue to monitor and provide support.
[2016-12-08 08:00] VITALS: BP 147/70
[2016-12-08 09:02] VITALS: BP 147/70
[2016-12-08] MEDS: BACLOFEN 20 MG TABLET PO SCH (09:02)
[2016-12-08] MEDS: MULTIVITAMINS,THERAPEUTIC TABLET PO SCH (09:02)
[2016-12-08] MEDS: FOLIC ACID 1 MG TABLET PO SCH (09:02)
[2016-12-08] MEDS: THIAMINE HCL 100 MG TABLET PO SCH (09:02)
--- NOTE | 2016-12-08 09:02 | NUR ---
PRN MEDICATION Pt c/o Anxiety presented with sweats and minor tremors requested something for relief, non-pharmacological techniques interventions provided x3 and were not effective. BP: 147/70mmHg and Pulse:81 PRN Clonidine 0.1mg administered PO, educated pt about s/e of medication and when to contact nurse. all needs met, all safety measures in place, will continue to monitor.
[2016-12-08] MEDS: GABAPENTIN 300 MG CAPSULE PO SCH (09:03)
--- NOTE | 2016-12-08 09:55 | NUR ---
DISCHARGE NOTE Pt is in stable condition. Vitals WNL, Pt alert and oriented x4, skin intact, Pt denies any SI/HI. All discharge paperwork completed dated and signed. Pt educated about discharge instructions, what to do after discharge when to contact MD as well as the s/s reportable to MD, pt verbalized understanding. Pt was provided with all of his discharge paperwork. Pt's last COWS:3 and CIWA:2 taken at 0800. Pts wound pictures have been taken prior to discharge and are placed in his folder. Pt was discharged from [facility] on 12/08/16 at 0950. Pt left the building with all of his belongings, prescriptions pt did not bring any home medications to be returned. MD and psychiatrist have been contacted notified and aware of pt's d/c.
== END 2016-12-08 09:50 | disposition other institution (70) | DRG 895 ==
LOC: SRC 17:34
PROVIDERS: ADMIT Internal Medicine; ATTEND Internal Medicine
PROC: HZ2ZZZZ Detoxification Services for Substance Abuse Treatment (ICD-10-PCS; principal; 2016-12-02)
PROC: HZ41ZZZ Group Counseling for Substance Abuse Treatment, Behavioral (ICD-10-PCS; 2016-12-04)
PROC: HZ31ZZZ Individual Counseling for Substance Abuse Treatment, Behavioral (ICD-10-PCS; 2016-12-04)
DX: F10.230 Alcohol dependence with withdrawal, uncomplicated (principal); F15.20 Other stimulant dependence, uncomplicated; D68.59 Other primary thrombophilia; F31.4 Bipolar disorder, current episode depressed, severe, without psychotic features; F11.23 Opioid dependence with withdrawal; Y90.9 Presence of alcohol in blood, level not specified; Z59.0 Homelessness; Z81.3 Family history of other psychoactive substance abuse and dependence; Z81.8 Family history of other mental and behavioral disorders; Z79.01 Long term (current) use of anticoagulants; F17.210 Nicotine dependence, cigarettes, uncomplicated; B19.20 Unspecified viral hepatitis C without hepatic coma; Z91.19 Patient's noncompliance with other medical treatment and regimen; Z91.5 Personal history of self-harm; I80.9 Phlebitis and thrombophlebitis of unspecified site
CPT/HCPCS: 36415; 70030-TC; 80307; 80324; 80345; 80361; 83690; 83735; 84443; 85025; 85610; 86580; 86592; 86705; 86803; 87340; 87806; A4663; G0480; J1885; Q0162